=== PATIENT | female | born 1975 | race Two or more races ===

== ENCOUNTER 2018-02-23 18:24 | Emergency (ER) | payer BC ==
[~2018-02-23] VITALS: Ht 167.6 cm; Wt 60.0 kg
[2018-02-23 19:53] VITALS: BP 110/65
== END 2018-02-23 20:31 | disposition home or self-care (01) ==
LOC: ER 18:24
DX: Z04.1 Encounter for examination and observation following transport accident (principal); I10 Essential (primary) hypertension; F41.9 Anxiety disorder, unspecified; Z90.49 Acquired absence of other specified parts of digestive tract
CPT/HCPCS: 99283